=== PATIENT | male | born 1985 | race Caucasian/White ===

== ENCOUNTER 2021-06-07 08:35 | Emergency (ER) | payer SELFPAY ==
--- NOTE | 2021-06-07 08:38 | XRR_ITS ---
PROCEDURE INFORMATION: Exam: XR Right Hand Exam date and time: 06/07/2021 8:38 AM Age: 36 years old Clinical indication: Injury or trauma; Other: Shot nail into right thumb; Puncture; Finger; Injury date: 06/07/21 TECHNIQUE: Imaging protocol: XR Right hand. Views: 3 or more views. COMPARISON: No relevant prior studies available. FINDINGS: Bones/joints: See Soft tissues finding. Soft tissues: A large metallic nail is seen traversing the soft tissues of the right thumb. No fracture or dislocation identified. XR/XR hand RT min 3V* [id number] IMPRESSION: Metallic nail traversing the soft tissues of the right thumb. No clear evidence of osseous injury.
[2021-06-07] MEDS: lidocaine 2% INJ 20 mL INJECTION (09:05)
[2021-06-07 09:13] VITALS: BP 152/94; PULSE 80; RESP 16; TEMP 36.7; O2SAT 99; BMI 27.8
--- NOTE | 2021-06-07 09:14 | ED_ITS ---
HPI - Skin/Abscess/Foreign Bdy General: Chief complaint: Extremity Injury, Upper Stated complaint: shot nail into right thumb Time Seen by Provider: 06/07/21 08:44 History of Present Illness: HPI narrative: Patient is a 36-year-old male comes to the ED with a nail in right thumb. Patient was out working on a house and excellently shot of nail into the distal end of his right thumb. Patient denies any active bleeding and the pain is mild. Patient says he needs an updated tetanus. Associated symptoms: Deny chills, fever(s), nausea or vomiting Review of Systems Const: Denies: fever(s), chills or fatigue Eyes: Denies: change in vision or eye discomfort ENMT: Denies: throat pain, odynophagia, nasal discharge or nasal congestion Card: Denies: chest pain, palpitations, edema, swelling of feet/ankles, dyspnea on exertion or orthopnea Resp: Denies: dyspnea, productive cough or non-productive cough GI: Denies: abdominal pain, nausea, vomiting, diarrhea, constipation or hematochezia : Denies: flank pain, difficulty urinating, dysuria or hematuria Musc: Reports: extremity pain (right hand) and other (nail through distal end of right thumb); Denies: neck pain, back pain or extremity swelling Skin/Breast: Denies: rash or new lesions Neuro: Denies: headache(s), numbness in extremities or weakness in extremities PFS ED PFSH: Social History Smoking and tobacco status: current every day smoker Physical Exam Const: COMMON NORMALS: no acute distress, patient oriented x3 and alert GENERAL APPEARANCE: cooperative and comfortable HENMT: COMMON NORMALS: normocephalic HEAD & SCALP: normocephalic MOUTH: Normal oral and palatal mucosa present THROAT: posterior oropharynx normal and uvula midline Neck/C-Spine: COMMON NORMALS: supple GENERAL: Yes normal visual inspection Resp: COMMON NORMALS: normal respiratory effort, No retractions, No use of accessory muscles and clear to auscultation bilaterally AUSCULTATION: clear to auscultation bilaterally Cardio: COMMON NORMALS: regular rate, regular rhythm, S1 normal heart sound present, S2 normal heart sound present, No gallops present (Cardio), No clicks present (Cardio), No murmurs present (Cardio) and Peripheral pulses 2+ throughout RATE: regular rate RHYTHM: regular rhythm HEART SOUNDS: S1 normal heart sound present and S2 normal heart sound present PERIPHERAL PULSES: Peripheral pulses 2+ throughout GI: COMMON NORMALS: Normal to inspection, nondistended, normoactive bowel sounds present, Soft to palpation, non-tender and no masses PALPATION: Yes Soft to palpation : COMMON NORMALS: Yes no CVA tenderness BLADDER/KIDNEY EXAM: Yes no CVA tenderness Back/Pelvis: COMMON NORMALS: no CVA tenderness Extremity: COMMON NORMALS: full ROM NARRATIVE EXTREMITY EXAM: Patient has a visible male going through the distal aspect of patient's right thumb. It appears to go through the pad of patient's thumb and there is no active bleeding seen. Cap refill normal and patient has full range of motion in thumb. GENERA L: Yes normal exam except as noted Neuro: COMMON NORMALS: patient oriented x3 and moves all extremities SENSORIUM/ORIENTATION: Yes alert Skin: NARRATIVE SKIN EXAM: Patient has a visible male going through the distal aspect of patient's right thumb. GENERAL SKIN EXAM: dry skin Procedures Foreign Body Removal Time Out Performed: yes Site: right and hand (thumb) Description of foreign body: other (Nail) Sedation/Analgesia: other (digital block with lidocaine 2%) Technique: removal with forceps Confirmed by:: direct visualization (Intact nail removed) and radiograph Complications: none Post-procedure exam: awake, alert Neurovascular: no change from pre-procedure Nerve Block Nerve Block 1: Time out performed: Yes Local Anesthetic: lidocaine 2% Amount of anesthesia used (mL): 10 Side: right Nerve Blocks: digital (1st digit) Procedure Successful: Yes Patient Tolerated Procedure: well Complications: none Course Vital Signs: Vital signs: Vital Signs Temperature 98.9 F 06/07/21 10:26 Pulse Rate 85 06/07/21 10:26 Respiratory Rate 19 H 06/07/21 10:26 Blood Pressure 113/89 06/07/21 10:26 Pulse Oximetry 97 06/07/21 10:26 MDM - Skin/Abscess/Foreign Bdy MDM Narrative: Medical decision making narrative: Patient is a 36-year-old male comes to the ED with a nail and distal aspect of right thumb. Patient has full range of motion of the thumb and cap refill is normal. X-ray of right hand shows metallic nail transversing soft tissue no evidence of bony injury. Nerve block on first digit was performed with lidocaine 2%. Nail was then manually removed with some pliers. Nail was intact after removal. Post foreign body removal x-ray performed and no remaining foreign body seen and no acute fractures noted. Patient tolerated procedure well and then thumb was irrigated extensively with normal saline and then soaked in a saline iodine wash. Nurse then applied triple antibiotic ointment on thumb and bandaged it. Patient was discharged home with a prescription for Keflex. He was given an updated tetanus today here in the ED. He was told to follow-up with PCP in 7 to 10 days reevaluation. Return to ED precautions given. Patient understood and agreed with plan. Imaging Data^: Xray Ortho: Attestation: I personally reviewed and interpreted this imaging study as follows: My impression: Post nail removal right hand x-ray performed. No visible foreign body seen and no bony fractures noted. Radiologist's impression: [address] [address] XRay Report Signed Patient: Yonathan Lee Unit #: [id number] : 1985 Age/Sex: 36 / M ADM Date: 06/07/21 Loc: ER Room/Bed: Attending Dr: Ordering Provider/Ordering MD: Damon Carpenter Date of Service: 06/07/21 Procedure(s): XR hand RT min 3V* [id number] Accession Number(s): [id number] Report Number: [id number] PROCEDURE INFORMATION: Exam: XR Right Hand Exam date and time: 06/07/2021 8:38 AM Age: 36 years old Clinical indication: Injury or trauma; Other: Shot nail into right thumb; Puncture; Finger; Injury date: 06/07/21 TECHNIQUE: Imaging protocol: XR Right hand. Views: 3 or more views. COMPARISON: No relevant prior studies available. FINDINGS: Bones/joints: See Soft tissues finding. Soft tissues: A large metallic nail is seen traversing the soft tissues of the right thumb. No fracture or dislocation identified. XR/XR hand RT min 3V* [id number] IMPRESSION: Metallic nail traversing the soft tissues of the right thumb. No clear evidence of osseous injury. Dictated By: David Hubbard Signed By: David Hubbard Signed Date/Time: 06/07/21 1016 DD/ 1013 Discharge Plan Discharge Patient Disposition: Home Clinical Impression: Foreign body finger Condition: Stable Prescriptions: New cephalexin 500 mg capsule 500 mg PO Q6H 7 Days Qty: 28 RF: 0 No Action cyclobenzaprine 10 mg tablet 10 mg PO BID PRN (Reason: muscle spasm) Qty: 14 RF: 0 Discharge Orders: Discharge ED (Routine); Ordered 06/07/21 Ordered By: Damon Carpenter Referrals: Damon Clinton MD [Primary Care Provider] - Discharge Diet: Regular Discharge Activity: Increase activity as tolerated Patient Instructions: Soft Tissue Foreign Body (ED) Activity Restrictions/Additional Instructions: Follow-up with medical provider as directed in 7 to 10 days for reevaluation. Make sure to keep covered when out and about throughout the day. You can apply triple antibiotic ointment on thumb as well to help prevent infection. Clean daily with soap and water. Take full course of antibiotic as prescribed. Return to the ER or your medical provider if condition worsens. Please read and understand discharge instructions. Thank you for choosing [facility] for your healthcare needs today. Please realize this is an emergency room and that we are providing you with a medical screening exam and this may not be complete and all inclusive of all the testing and or work up that you may need to determine your ailment or severity of your illness. It is very important that you follow up as instructed or that you return to the Emergency Department should you have concerns or if your con dition changes or worsens in any way. Coding Level of Care Code ED Voice Over Artist for Owen Fwarnoldo Exam Comprehensive
[2021-06-07 09:16] VITALS: BP 113/89; PULSE 89; RESP 18; O2SAT 100
[2021-06-07] MEDS: tetanus-dipt-pertussis 0.5 mL SDV IM (09:20)
--- NOTE | 2021-06-07 10:03 | XRR_ITS ---
PROCEDURE INFORMATION: Exam: XR Right Hand Exam date and time: 06/07/2021 10:03 AM Age: 36 years old Clinical indication: Screening exam; Post nail removal TECHNIQUE: Imaging protocol: XR Right hand. Views: 3 or more views. COMPARISON: CR XR hand RT min 3V* [id number] 06/07/2021 8:50 AM FINDINGS: Bones/joints: See Soft tissues finding. Soft tissues: Previously seen metallic nail traversing the soft tissues of the thumb has been removed. No radiopaque foreign body identified. No fracture or dislocation seen. XR/XR hand RT min 3V* [id number] IMPRESSION: Interval successful removal of thumb foreign body.
[2021-06-07] MEDS: HYDROcodone-acetaminophen 7.5-325 mg Tablet 1 TAB PO (10:23)
[2021-06-07] MEDS: neomycin-poly-bacitracin oint 0.9 gm Pkt 1 APPLIC TOPICAL (10:23)
[2021-06-07 10:26] VITALS: BP 113/89; PULSE 85; RESP 19; TEMP 37.2; O2SAT 97
== END 2021-06-07 10:38 | disposition home or self-care (01) ==
PROVIDERS: Emergency Provider Physician Assistant; PCP Family Medicine
DX: S61.041A Puncture wound with foreign body of right thumb without damage to nail, initial encounter (principal); W45.0XXA Nail entering through skin, initial encounter; F17.210 Nicotine dependence, cigarettes, uncomplicated; Z23 Encounter for immunization
CPT/HCPCS: 73130; 90471; 90715; 99283

== ENCOUNTER 2021-07-13 22:19 | Emergency (ER) | payer OTHER, SELFPAY ==
[2021-07-13 22:20] VITALS: BP 162/88; PULSE 85; RESP 22; TEMP 36.7; O2SAT 97; BMI 30.7
[2021-07-13 22:37] VITALS: BP 162/88; PULSE 83; RESP 23; TEMP 36.7; O2SAT 97
--- NOTE | 2021-07-13 22:39 | CTR_ITS ---
PROCEDURE INFORMATION: Exam: CT Abdomen And Pelvis Without Contrast Exam date and time: 07/13/2021 10:39 PM Age: 36 years old Clinical indication: Abdominal pain; Patient HX: Left flank pain. ; Additional info: L side pain TECHNIQUE: Imaging protocol: Computed tomography of the abdomen and pelvis without contrast. Radiation optimization: All CT scans at this facility use at least one of these dose optimization techniques: automated exposure control; mA and/or kV adjustment per patient size (includes targeted exams where dose is matched to clinical indication); or iterative reconstruction. COMPARISON: CR Chest 1 [place] [id number] 12/04/2018 9:20 AM RADIATION DOSE METRICS: Total DLP (mGy-cm): 1567.56 FINDINGS: Liver: Normal. No mass. Gallbladder and bile ducts: Normal. No calcified stones. No ductal dilation. Pancreas: Normal. No ductal dilation. Spleen: Normal. No splenomegaly. Adrenal glands: Normal. No mass. Kidneys and ureters: 5 mm stone in the left mid ureter. Proximal hydroureteronephrosis. Nonobstructing upper pole left side stone 4 mm length. Stomach and bowel: Unremarkable. No obstruction. No mucosal thickening. Appendix: No evidence of appendicitis. Intraperitoneal space: Unremarkable. No free air. No significant fluid collection. Vasculature: Unremarkable. No abdominal aortic aneurysm. Lymph nodes: Unremarkable. No enlarged lymph nodes. Urinary bladder: Unremarkable as visualized. Reproductive: Unremarkable as visualized. Bones/joints: Unremarkable. No acute fracture. Soft tissues: Unremarkable. CT/CT kidney stone [id number] IMPRESSION: Left-sided ureterolithiasis with obstructive uropathy changes. Radiation Dose CTDIVOL = (mGy): DLP = 1567.56 (mGy-cm)
--- NOTE | 2021-07-13 22:42 | W.ED.ABDPA2 ---
HPI - Abdominal Pain General: Chief Complaint: Abdominal Pain Stated Complaint: abdominal pain Time Seen by Provider: 07/13/21 22:22 Source: patient and EMS Mode of arrival: EMS Limitations: no limitations History of Present Illness: HPI narrative: 36-year-old male states that at 9:00 tonight he had sudden onset of left-sided abdominal pain and left flank pain. States the pain is sharp in nature and rates it a 9 out of 10 causing him to vomit. He states the pain is actually improved when he presses on his abdomen. Denies any worsening factors. Associated Symptoms: Reports nausea and vomiting; Denies chills and fever(s) Review of Systems Const: Denies: fever(s), chills, body aches or change in appetite Eyes: Denies: blurry vision or eye discomfort ENMT: Denies: throat pain or dental pain Card: Denies: chest pain Resp: Denies: dyspnea GI: Reports: abdominal pain, nausea and vomiting : Reports: flank pain Musc: Denies: neck pain or back pain Skin/Breast: Denies: rash Neuro: Denies: headache(s) Psych: Denies: depression Colin/Lymph: Denies: easy bruising All/Imm: Denies: urticaria PFSH ED PFSH: Social History Smoking and tobacco status: current every day smoker Physical Exam Const: COMMON NORMALS: no acute distress, patient oriented x3 and healthy appearing HENMT: COMMON NORMALS: normocephalic and atraumatic HEAD & SCALP: normocephalic and atraumatic Eye: COMMON NORMALS: Equal, round and reactive pupils present and EOMs intact bilaterally PUPIL: Yes Equal, round and reactive pupils present Neck/C-Spine: COMMON NORMALS: full ROM and supple Chest: COMMONS NORMALS: normal inspection of the chest and normal palpation of entire chest wall Resp: COMMON NORMALS: normal respiratory effort, No retractions, No use of accessory muscles and clear to auscultation bilaterally AUSCULTATION: clear to auscultation bilaterally Cardio: COMMON NORMALS: regular rate, regular rhythm and No murmurs present (Cardio) RATE: regular rate RHYTHM: regular rhythm GI: COMMON NORMALS: Normal to inspection, nondistended, normoactive bowel sounds present, Soft to palpation, non-tender and no masses PALPATION: Yes Soft to palpation Extremity: COMMON NORMALS: normal to inspection and full ROM Neuro: COMMON NORMALS: patient oriented x3, moves all extremities and no focal motor deficits Psych: COMMON NORMALS: mental status grossly normal, Normal thought process present and cooperative THOUGHT PROCESS: Normal thought process present Skin: COMMON NORMALS: no rashes or lesions noted and no wounds GENERAL SKIN EXAM: no rashes or lesions noted Course Vital Signs: Vital signs: Vital Signs Temperature 98.1 F 07/13/21 22:37 Pulse Rate 92 07/14/21 00:51 Respiratory Rate 15 07/14/21 00:51 Blood Pressure 138/73 07/14/21 00:51 Pulse Oximetry 99 07/14/21 00:51 MDM - Abdominal Pain MDM Narrative: Medical decision making narrative: Patient presents here with kidney stone. Stones 5 mm likely should pass. His pain here is resolved and is stable for discharge. He is to follow-up with urologist and use a strainer. He is to return if worsening. He understands agrees to plan. Lab Data: Labs: Lab Results 07/13/21 07/13/21 07/13/21 Range/Units 22:30 22:30 23:55 WBC 13.0 H (4.0-10.0) 10^3/ uL RBC 4.31 (4.1-5.3) 10^6/u L Hgb 13.3 (11.7-16.6) g/dL Hct 40.9 L (42.0-52.0) % MCV 94.9 H (80-94) fl MCH 30.9 (28.0-34.0) pg MCHC 32.5 (30.0-36.0) g/dL RDW 13.0 (12.1-15.1) % Plt Count 272 (130-400) 10^3/c mm MPV 9.3 (7.4-10.4) fL Neut % (Auto) 67.8 % Lymph % (Auto) 20.8 % [place] % (Auto) 8.3 % Eos % (Auto) 2.5 % Baso % (Auto) 0.3 % Neut # (Auto) 8.81 H (1.8-7.7) 10^3/u L Lymph # (Auto) 2.7 (0.8-4.8) 10^3/u L [place] # (Auto) 1.1 H (0.2-0.9) 10^3/u L Eos # (Auto) 0.3 (0.0-0.8) 10^3/u L Baso # (Auto) 0.0 (0.0-0.1) 10^3/u L Nucleated RBC % (a uto) 0 % Nucleated RBCs # 0.0 /100WBC Sodium 137 (136-145) mmol/L Potassium 4.2 (3.5-5.1) mmol/L Chloride 102 (98-107) mmol/L Carbon Dioxide 22 (22-29) mmol/L Anion Gap 17.2 (5-19) BUN 20 (6-20) mg/dL Creatinine 1.1 (0.7-1.2) mg/dL GFR Calculation 75.3 L (90-130) mL/min Glucose 91 (65-115) mg/dL Calculated Osmolal ity 286 (285-295) mOsm/k g Calcium 8.9 (8.5-10.5) mg/dL Total Bilirubin 0.3 (0.15-1.2) mg/dL AST 21 (0-40) U/L ALT 6 (0-41) U/L Alkaline Phosphata se 54 (40-130) IU/L Total Protein 7.3 (6.6-8.7) g/dL Albumin 4.3 (3.5-5.2) g/dL Globulin 3.0 (1.3-4.6) g/dL Lipase 43 (13-60) U/L Urine Color Yellow (Yellow) Urine Appearance Clear (CLEAR) Urine pH 5 (5-7) Ur Specific Gravit y 1.025 (1.005-1.030) Urine Protein Neg (Negative) Urine Glucose (UA) Norm (Normal) Urine Ketones Negative (Negative) Urine Blood 3+ H (Negative) Urine Nitrate Negative (Negative) Urine Bilirubin Neg (Negative) Urine Urobilinogen Norm (Negative) mg/dL Ur Leukocyte [place] ase Negative (Negative) Urine RBC 0-4 H (0-2) /hpf Urine WBC 25-40 H (0-5) /hpf Ur Squamous Epith Cells 0-4 H (0-5) /hpf Amorphous Sediment Not Reportable Urine Bacteria Trace (NONE) /hpf Urine Mucus 1+ /hpf Imaging Data ^: CT Abd/Pel: Attestation: I personally reviewed and interpreted this imaging study as follows: Radiologist's impression: [employer] [place] [address] CT Scan Report Signed Patient: Yonathan Lee Unit #: [id number] : 1985 Age/Sex: 36 / M ADM Date: 07/13/21 Loc: ER Room/Bed: Attending Dr: Ordering Provider/Ordering MD: Bee Luis MD Date of Service: 07/13/21 Procedure(s): CT kidney stone 52124 Accession Number(s): [id number] Report Number: [id number] PROCEDURE INFORMATION: Exam: CT Abdomen And Pelvis Without Contrast Exam date and time: 07/13/2021 10:39 PM Age: 36 years old Clinical indication: Abdominal pain; Patient HX: Left flank pain. ; Additional info: L side pain TECHNIQUE: Imaging protocol: Computed tomography of the abdomen and pelvis without contrast. Radiation optimization: All CT scans at this facility use at least one of these dose optimization techniques: automated exposure control; mA and/or kV adjustment per patient size (includes targeted exams where dose is matched to clinical indication); or iterative reconstruction. COMPARISON: CR Chest 1 [place] [id number] 12/04/2018 9:20 AM RADIATION DOSE METRICS: Total DLP (mGy-cm): 1567.56 FINDINGS: Liver: Normal. No mass. Gallbladder and bile ducts: Normal. No calcified stones. No ductal dilation. Pancreas: Normal. No ductal dilation. Spleen: Normal. No splenomegaly. Adrenal glands: Normal. No mass. Kidneys and ureters: 5 mm stone in the left mid ureter. Proximal hydroureteronephrosis. Nonobstructing upper pole left side stone 4 mm length. Stomach and bowel: Unremarkable. No obstruction. No mucosal thickening. Appendix: No evidence of appendicitis. Intraperitoneal space: Unremarkable. No free air. No significant fluid collection. Vasculature: Unremarkable. No abdominal aortic aneurysm. Lymph nodes: Unremarkable. No enlarged lymph nodes. Urinary bladder: Unremarkable as visualized. Reproductive: Unremarkable as visualized. Bones/joints: Unremarkable. No acute fracture. Soft tissues: Unremarkable. CT/CT kidney stone [id number] IMPRESSION: Left-sided ureterolithiasis with obstructive uropathy changes. Radiation Dose CTDIVOL = (mGy): DLP = 1567.56 (mGy-cm) Dictated By: Anurag Rodas Signed By: Anurag Rodas Signed Date/Time: 07/13/212340 DD/ 39 Discharge Plan Discharge Patient Disposition: Home Clinical Impression: Kidney stone on left side Condition: Stable Prescriptions: New hydrocodone-acetaminophen 5-325 mg tablet 1 tab PO Q6H PRN (Reason: pain) Qty: 14 RF: 0 ondansetron 4 mg tablet,disintegrating 4 mg PO Q6H PRN (Reason: nausea and vomiting) Qty: 14 RF: 0 Flomax 0.4 mg capsule 0.4 mg PO DAILY Qty: 5 RF: 0 No Action metronidazole 500 mg tablet 500 mg PO BID 7 Days Qty: 14 RF: 0 Discharge Orders: Discharge ED (Routine); Ordered 07/14/21 Ordered By: Bee Luis Referrals: Kevin Franklin MD [Physician] - 1-3 days Discharge Diet: Advance as tolerated Discharge Activity: Resume usual activity Patient Instructions: Kidney Stones (ED), Opioid Safety Coding Level of Care Code ED Construction Administrative Assistant for Chg Fwd Exam Comprehensive
[2021-07-13 22:43] LABS: Basophils % 0.3 %; Eosinophils # 0.3 10^3/uL (0.0-0.8); Eosinophils % 2.5 %; Hematocrit 40.9 % (42.0-52.0); Hemoglobin 13.3 g/dL (11.7-16.6); Lymphocytes # 2.7 10^3/uL (0.8-4.8); Lymphocytes % 20.8 %; Mean Corpuscular HGB Conc 32.5 g/dL (30.0-36.0); Mean Corpuscular Hemoglobin 30.9 pg (28.0-34.0); Mean Corpuscular Volume 94.9 fl (80-94); Mean Platelet Volume 9.3 fL (7.4-10.4); Monocytes # 1.1 10^3/uL (0.2-0.9); Monocytes % 8.3 %; Neutrophils # 8.81 10^3/uL (1.8-7.7); Neutrophils % 67.8 %; Nucleated Red Blood Cells % 0 %; Platelet Count 272 10^3/cmm (130-400); Red Blood Count 4.31 10^6/uL (4.1-5.3)
[2021-07-13] MEDS: sodium chloride 0.9% 1,000 ML 999 ML IV ×2 (22:45→23:59)
[2021-07-13 22:52] VITALS: RESP 22; O2SAT 98
[2021-07-13] MEDS: HYDROmorphone 1 mg/mL INJ 1 mL IVP (22:52)
[2021-07-13] MEDS: ondansetron 2 mg/ML SDV 2 mL 4 MG IVP (22:52)
[2021-07-13 23:11] LABS: Alanine Aminotransferase 6 U/L (0-41); Albumin Level 4.3 g/dL (3.5-5.2); Alkaline Phosphatase 54 IU/L (40-130); Blood Urea Nitrogen 20 mg/dL (6-20); Calcium 8.9 mg/dL (8.5-10.5); Carbon Dioxide 22 mmol/L (22-29); Chloride 102 mmol/L (98-107); Glomerular Filtration Rate 75.3 mL/min (90-130); Glucose 91 mg/dL (65-115); Lipase 43 U/L (13-60); Osmolality Calculated 286 mOsm/kg (285-295); Sodium 137 mmol/L (136-145); Total Bilirubin 0.3 mg/dL (0.15-1.2); Total Protein 7.3 g/dL (6.6-8.7)
[2021-07-13 23:15] VITALS: BP 125/69; PULSE 86; RESP 18; O2SAT 94
[2021-07-13 23:23] LABS: Anion Gap 17.2 (5-19); Aspartate Amino Transferase 21 U/L (0-40); Potassium 4.2 mmol/L (3.5-5.1)
[2021-07-14] MEDS: ketorolac 30 mg/mL INJ 15 MG IVP (00:12)
[2021-07-14 00:13] VITALS: BP 129/71; PULSE 78; RESP 20; O2SAT 100
[2021-07-14 00:40] LABS: Specific Gravity, Urine 1.025 (1.005-1.030); Urine Appearance Clear (CLEAR); Urine Color Yellow (Yellow); pH Urine 5 (5-7)
[2021-07-14 00:41] LABS: Add Urine Microscopic? YES; Bilirubin Urine Neg (Negative); Blood Urine 3+ (Negative); Glucose Urine UA Norm (Normal); Ketones Urine Negative (Negative); Leukocyte Esterase Urine Negative (Negative); Nitrate Urine Negative (Negative); Protein Urine Neg (Negative); Urobilinogen Urine Norm (Negative)
[2021-07-14 00:42] LABS: Add Urine Culture? Yes; Bacteria Urine TRACE /hpf; Mucus Urine 1+ /hpf; RBC Urine 0-4 /hpf (0-2); Squamous Epithelial Cell Urine 0-4 /hpf (0-5); WBC Urine 25-40 /hpf (0-5)
[2021-07-14 00:51] VITALS: BP 138/73; PULSE 92; RESP 15; O2SAT 99
[2021-07-14 00:59] VITALS: BP 138/73; PULSE 84; RESP 16; O2SAT 100
--- NOTE | 2021-07-16 10:18 | DCPLANNER ---
geological manager had message to schedule a follow up appointment for patient with Dr. Franklin. geological manager called the office of Dr. Franklin, spoke with Kvng, gave clinic patients information. geological manager was told that patients information would be printed and reviewed. Clinic will call patient with appointment information.
--- NOTE | 2021-07-18 09:49 | DCPLANNER ---
Patient had a follow up appointment scheduled for 07.17.[address] Franklin - patient did attend appointment.
== END 2021-07-14 00:58 | disposition home or self-care (01) ==
PROVIDERS: Emergency Provider Emergency Medicine
DX: N20.0 Calculus of kidney (principal); F17.210 Nicotine dependence, cigarettes, uncomplicated
CPT/HCPCS: 74176; 80053; 81001; 83690; 85025; 87086; 96361; 96374; 96375; 99284; J1170; J1885; J2405; J7030

== ENCOUNTER 2021-07-17 12:03 | Outpatient (CLI) | payer OTHER, SELFPAY ==
--- NOTE | 2021-07-17 13:29 | XR_ITS ---
WS: [id number] XR KUB [id number] REASON FOR EXAM: KIDNEY STONE FINDINGS: The calculus in the left kidney demonstrated on the CT scan of 07/13/2021 is not readily identified on the current examination. No other urinary tract calculi are identified. The bowel gas pattern is unremarkable. There is no free air or retroperitoneal air. Lumbar spine and bony pelvis are intact. XR/XR KUB [id number] IMPRESSION: No urinary tract calculi identified as above.
== END 2021-07-17 12:04 | disposition home or self-care (01) ==
LOC: RAD 12:07
PROVIDERS: Visit Provider Urology
DX: N20.0 Calculus of kidney (principal)
CPT/HCPCS: 74018

== ENCOUNTER 2021-07-25 07:23 | Outpatient (CLI) | payer OTHER, SELFPAY ==
--- NOTE | 2021-07-25 07:28 | XR_ITS ---
WS: [id number] KUB, AP view, 07/25/2021 Clinical Data: URETERAL CALCULUS AND RENAL COLIC ON LEFT SIDE Comparison: KUB, 07/17/2021. Findings: No abnormal intraabdominal masses or calcifications are seen. There is no dilatated small bowel or ev idence of obstruction. There is moderate fecal material in the ascending colon. XR/XR KUB [id number] Impression: Negative KUB.
== END 2021-07-25 07:24 | disposition home or self-care (01) ==
LOC: RAD 07:25
PROVIDERS: Visit Provider Urology
DX: N20.1 Calculus of ureter (principal); N23 Unspecified renal colic
CPT/HCPCS: 74018; 82365; 88300

== ENCOUNTER 2021-09-17 08:26 | Outpatient (CLI) | payer OTHER, SELFPAY ==
--- NOTE | 2021-09-17 08:15 | XR_ITS ---
WS: [id number] Exam: XR KUB [id number] Date/Time of Exam: 09/17/2021 8:15 AM Reason For Exam: renal stone No sign of bowel obstruction or free air. Visualized organ margins are intact. No calcifications are noted in the region of the kidneys. Regional bony elements appear normal. 2 mm nonspecific left pelvi c calcification noted. XR/XR KUB [id number] IMPRESSION: 1. No acute abdominal process. 2. No calcifications noted in the region of the kidneys.
== END 2021-09-17 08:27 | disposition home or self-care (01) ==
LOC: RAD 08:28
PROVIDERS: Visit Provider Urology
DX: N20.0 Calculus of kidney (principal)
CPT/HCPCS: 74018; 81003

== ENCOUNTER → 2021-10-03 14:50 | Outpatient (BNVA) | payer OTHER, SELFPAY | PROVIDERS: Visit Provider Surgery | DX: Z20.822 Contact with and (suspected) exposure to COVID-19 (principal) | CPT/HCPCS: 87635 ==

== ENCOUNTER 2021-10-05 07:43 | Day surgery (SDC) | payer OTHER, SELFPAY ==
[2021-10-04 10:28] VITALS: BMI 31.5
--- NOTE | 2021-10-05 08:12 | W.PM.OPSFHP ---
Same Day Surgery H&P Indication for Procedure/HPI DATE OF PROCEDURE: October 05, 2021 CHIEF COMPLAINT/INDICATIONFOR SURGICAL PROCEDURE: colonoscopy PREOP DIAGNOSIS: diagnostic PLANNED PROCEDRUE: Operation Date: 10/05/21 09:15 Proposed Procedures p Colonoscopy 33428 K92.1(Not Applicable) - Kurt Chaparro MD Medications/Allergies* Allergies/Adverse Reactions Allergy/AdvReac Type Severity Reaction Status Date / Time Sulfa (Sulfonamide Allergy ALGY-Hives Verified 10/04/21 10:27 Antibiotics) Pertinent History/Comorbid Conditions* Medical History (Updated 09/17/21 @ 10:07 by Lulu Coley APRN) Left renal stone Left ureteral calculus Surgical History (Updated 09/25/21 @ 11:43 by Kurt Chaparro MD) History of open reduction and internal fixation (ORIF) procedure RLE Family History (Updated 07/17/21 @ 14:57 by JULIETA Roberts) Diabetes CAD (coronary artery disease) Cancer Social History Alcohol intake: never Marital status: Current occupational status: employed Pertinent Exam Findings alert, oriented x 3 and regular rate & rhythm Recommendations Surgery/Procedure today Coding Level of Care Code Acute Open Hearth Worker for Chg Samson
--- NOTE | 2021-10-05 08:20 | ANES.PREANE2 ---
Pre-Anesthetic Assessment Pre-Anesthetic Assessment: Height/Weight: Height 1.78 m Weight 99.79 kg Preop Diagnosis: diagnostic Proposed Procedure: Operation Date: 10/05/21 09:15 Proposed Procedures p Colonoscopy 00034 K92.1(Not Applicable) - Kurt Chaparro MD Was Beta Lee taken within 24 hours: N/A Was Clonidine taken within 24 hours: N/A Social: Social History: Tobacco and No alcohol Exam: Pre-Anes Outpt Exam: alert, oriented x 3 and regular rate & rhythm Airway: Submandibular: WNL Cervical ROM: WNL MP: 2 Dentition: Chipped Additional comments: Ren, tongue ring Pulmonary: Pulmonary: COPD Metabolic: Metabolic: Morbid obesity Anesthetic Plan: ASA status: 2 Anesthesia: MAC Risk of > 500 ml blood loss (7ml/kg in children): No PFSH Anesthesia PFSH: Medical History Left renal stone Left ureteral calculus Surgical History History of open reduction and internal fixation (ORIF) procedure RLE Family History Other CAD (coronary artery disease) Cancer Diabetes Social History Alcohol intake: never Marital status: Current occupational status: employed Data Anesthesia Cardiac Studies: No Data to Display
[2021-10-05] MEDS: sodium chloride 0.9% 1,000 ML 30 ML IV (09:09)
[2021-10-05 10:08] VITALS: BP 113/65; PULSE 78; RESP 16; TEMP 36.4; O2SAT 97
[2021-10-05 10:25] VITALS: BP 115/70; PULSE 80; RESP 18; O2SAT 96
--- NOTE | 2021-10-05 10:40 | ANE.PACU2 ---
Inpatient post-anesthesia follow up: Airway intact: Yes Vital signs: Temperature 97.6 F Pulse Rate 80 Respiratory Rate 18 Blood Pressure 115/70 Pulse Oximetry 96 Oxygen Delivery Me thod Room Air Oxygen Flow Rate Fraction of Inspir ed Oxygen Hydration adequate: Yes Mental status: Baseline
== END 2021-10-05 10:49 | disposition home or self-care (01) ==
PROVIDERS: Visit Provider Surgery
PROC: 0DJD8ZZ Inspection of Lower Intestinal Tract, Via Natural or Artificial Opening Endoscopic (ICD-10-PCS; CPT 45378; principal; 2021-10-05 09:15)
DX: K92.1 Melena (principal); K64.8 Other hemorrhoids; J44.9 Chronic obstructive pulmonary disease, unspecified; E66.01 Morbid (severe) obesity due to excess calories; Z68.31 Body mass index [BMI] 31.0-31.9, adult; F17.200 Nicotine dependence, unspecified, uncomplicated; Z82.49 Family history of ischemic heart disease and other diseases of the circulatory system; Z83.3 Family history of diabetes mellitus
CPT/HCPCS: 45378; 96360; J7030

== ENCOUNTER → 2022-06-25 10:32 | Outpatient (BNVA) | payer OTHER, SELFPAY | PROVIDERS: Visit Provider Registered Nurse Neonatal Intensive Care | DX: R50.9 Fever, unspecified (principal); J02.9 Acute pharyngitis, unspecified; J40 Bronchitis, not specified as acute or chronic | CPT/HCPCS: 87071; 87400; 87880 ==

== ENCOUNTER 2022-07-25 07:21 | Outpatient (CLI) | payer OTHER, SELFPAY ==
--- NOTE | 2022-07-25 07:34 | XR_ITS ---
WS: [id number] KUB, AP view, 07/25/2022 Clinical Data: Renal Stone Comparison: KUB, 09/17/2021 Findings: No abnormal intraabdominal masses or calcifications are seen. There is no dilatated small bowel or ev idence of obstruction. There is air and minimal fecal material in the colon. XR/XR KUB [id number] Impression: Negative KUB.
== END 2022-07-25 07:22 | disposition home or self-care (01) ==
LOC: RAD 07:23
PROVIDERS: Visit Provider Urology
DX: N20.0 Calculus of kidney (principal)
CPT/HCPCS: 74018

== ENCOUNTER 2022-10-31 10:07 | Emergency (ER) | payer OTHER, SELFPAY ==
[2022-10-31 10:12] VITALS: BP 130/78; PULSE 105; RESP 19; TEMP 39.5; O2SAT 97; BMI 28.7
--- NOTE | 2022-10-31 10:27 | W.ED.COVID ---
HPI - COVID General: Chief Complaint: COVID symptoms Stated Complaint: high fever, body aches Time Seen by Provider: 10/31/22 10:17 History of Present Illness: Patient is in today for fever. He reports that he felt okay until about midnight and he woke up with 105 fever at home. He reports that he is always hot and he has bundled up in several layers now he is freezing. He reports that he has still been able to drink liquids and he did urinate today. He has had a decreased appetite. He reports that he has had a little bit of a dry cough. He offers that he has been around his boss whose had influenza A but he did not think his boss had been sick. COVID 19 common symptoms: positive fever(s), chills, non-productive cough, fatigue, body aches, headache(s) and nasal congestion; negative dyspnea, nausea or vomiting COVID 19 other sytmptoms: negative chest pain COVID Results: SARS-CoV-2 RNA (RT-PCR) Not detected (NOT DETECTED) 10/03/21 14:50 SARS-CoV-2 (PCR) Detected (NOT DETECT) A 10/31/22 11:25 Coronavirus Type 229E (PCR) Not detected (NOT DETECT) 10/31/22 11:25 Review of Systems Const: Reports: fever(s), chills, body aches and fatigue ENMT: Reports: nasal congestion and post nasal drip Card: Denies: chest pain or palpitations Resp: Reports: non-productive cough; Denies: dyspnea GI: Denies: abdominal pain, nausea or vomiting : Denies: flank pain, dysuria or urinary frequency Neuro: Reports: headache(s); Denies: numbness in extremities, weakness in extremities, sensory changes or lack of coordination PFSH ED PFSH: Medical History Hemorrhoids Left renal stone Left ureteral calculus Surgical History History of open reduction and internal fixation (ORIF) procedure RLE Status post colonoscopy Family History Father No problems noted. Mother No problems noted. Other CAD (coronary artery disease) Cancer Diabetes Social History Smoking and tobacco status: current every day smoker Alcohol intake: never Marital status: Current occupational status: employed History of recent travel: No Physical Exam Const: COMMON NORMALS: patient oriented x3 and alert OTHER: Patient is ill-appearing. He is bundled up in 4 layers of shirts and a garcia shivering. I had him remove the hooded sweatshirt. HENMT: COMMON NORMALS: TM's normal bilaterally NOSE: Nasal discharge present clear TYMPANIC MEMBRANE: TM's normal bilaterally THROAT: uvula midline and postnasal drainage Neck/C-Spine: COMMON NORMALS: no JVD Resp: COMMON NORMALS: normal respiratory effort, No use of accessory muscles and clear to auscultation bilaterally AUSCULTATION: clear to auscultation bilaterally Cardio: COMMON NORMALS: no JVD, regular rate, regular rhythm, S1 normal heart sound present, S2 normal heart sound present and No murmurs present (Cardio) RATE: regular rate RHYTHM: regular rhythm HEART SOUNDS: S1 normal heart sound present and S2 normal heart sound present Neuro: COMMON NORMALS: patient oriented x3, CN's II-XII intact bilaterally and moves all extremities SENSORIUM/ORIENTATION: Yes alert Course Vital Signs: Vital signs: Vital Signs Temperature 99.6 F 10/31/22 13:11 Pulse Rate 98 10/31/22 13:11 Respiratory Rate 19 H 10/31/22 13:11 Blood Pressure 122/70 10/31/22 13:11 Pulse Oximetry 97 10/31/22 13:11 Oxygen Delivery Me thod 10/31/22 13:10 MDM - COVID Medical Decision Making Consider influenza, COVID-19, viral illness, dehydration, fever IV fluids were ordered however patient was a difficult stick and wishes to just try and drink p.o. fluids. Patient is drinking oral liquids. Tylenol was given to bring down fever. Influenza negative. Lab Data 10/31/22 11:10 10/31/22 11:10 Laboratory Results WBC 7.2 10^3/uL (4.0-10.0) 10/31/22 11:10 RBC 4.42 10^6/uL (4.1-5.3) 10/31/22 11:10 Hgb 13.7 g/dL (11.7-16.6) 10/31/22 11:10 Hct 40.1 % (42.0-52.0) L 10/31/22 11:10 MCV 90.7 fl (80-94) 10/31/22 11:10 MCH 31.0 pg (28.0-34.0) 10/31/22 11:10 MCHC 34.2 g/dL (30.0-36.0) 10/31/22 11:10 RDW 13.3 % (12.1-15.1) 10/31/22 11:10 Plt Count 222 10^3/cmm (130-400) 10/31/22 11:10 MPV 8.9 fL (7.4-10.4) 10/31/22 11:10 Neut % (Auto) 76.4 % 10/31/22 11:10 Lymph % (Auto) 7.2 % 10/31/22 11:10 [place] % (Auto) 15.1 % 10/31/22 11:10 Eos % (Auto) 0.7 % 10/31/22 11:10 Baso % (Auto) 0.3 % 10/31/22 11:10 Neut # (Auto) 5.54 10^3/uL (1.8-7.7) 10/31/22 11:10 Lymph # (Auto) 0.5 10^3/uL (0.8-4.8) L 10/31/22 11:10 [place] # (Auto) 1.1 10^3/uL (0.2-0.9) H 10/31/22 11:10 Eos # (Auto) 0.1 10^3/uL (0.0-0.8) 10/31/22 11:10 Baso # (Auto) 0.0 10^3/uL (0.0-0.1) 10/31/22 11:10 Nucleated RBC % (auto) 0 % 10/31/22 11:10 Nucleated RBCs # 0.0 /100WBC 10/31/22 11:10 Sodium 133 mmol/L (136-145) L 10/31/22 11:10 Potassium 4.1 mmol/L (3.5-5.1) 10/31/22 11:10 Chloride 99 mmol/L (98-107) 10/31/22 11:10 Carbon Dioxide 24 mmol/L (22-29) 10/31/22 11:10 Anion Gap 14.1 (5-19) 10/31/22 11:10 BUN 13 mg/dL (6-20) 10/31/22 11:10 Creatinine 1.0 mg/dL (0.7-1.2) 10/31/22 11:10 GFR Calculation 83.6 mL/min (90-130) L 10/31/22 11:10 Glucose 88 mg/dL (65-115) 10/31/22 11:10 Calculated Osmolality 276 mOsm/kg (285-295) L 10/31/22 11:10 Calcium 9.5 mg/dL (8.5-10.5) 10/31/22 11:10 Total Bilirubin 0.3 mg/dL (0.15-1.2) 10/31/22 11:10 AST 18 U/L (0-40) 10/31/22 11:10 ALT 6 U/L (0-41) 10/31/22 11:10 Alkaline Phosphatase 63 U/L (40-130) 10/31/22 11:10 Total Protein 7.2 g/dL (6.6-8.7) 10/31/22 11:10 Albumin 4.2 g/dL (3.5-5.2) 10/31/22 11:10 Globulin 3.0 g/dL (1.3-4.6) 10/31/22 11:10 Coronavirus 229E (PCR) Not detected (NOT DETECT) 10/31/22 11:25 Influenza Type A Ag negative (Negative) 10/31/22 11:25 Influenza Type B Ag negative (Negative) 10/31/22 11:25 SARS-CoV-2 (PCR) Detected (NOT DETECT) A 10/31/22 11:25 SARS-CoV-2 RNA (RT-PCR) Not detected (NOT DETECTED) 10/03/21 14:50 SARS-CoV-2 (PCR) Detected (NOT DETECT) A 10/31/22 11:25 Coronavirus Type 229E (PCR) Not detected (NOT DETECT) 10/31/22 11:25 Discharge Plan Discharge Patient Disposition: Home Clinical Impression: Acute febrile illness, Viral infection Condition: Stable Prescriptions: No Action Flomax 0.4 mg capsule 0.4 mg PO DAILY Qty: 30 0RF lactulose 10 gram/15 mL (15 mL) solution 15 ml PO BID 7 Days Qty: 210 0RF Rx Instructions: take for 7 days prior to colonoscopy ondansetron 4 mg tablet,disintegrating 4 mg PO Q6H PRN (Reason: nausea and vomiting) Qty: 14 0RF hydrocodone-acetaminophen 5-325 mg tablet 2 tab PO Q6H PRN (Reason: pain) 3 Days Qty: 24 0RF Discharge Orders: Discharge ED (Routine); Ordered 10/31/22 Ordered By: Mini Aragon Discharge Diet: Usual diet Discharge Activity: Resume usual activity Patient Instructions: Fever - Adult, Viral Syndrome (ED) Activity Restrictions/Additional Instructions: Make sure that you are staying well-hydrated. Take Tylenol and Motrin alternating to manage her fever. Do not bundled up when you have a fever as this will only make you more hot. Follow-up with your primary care provider as needed. Return to the ER for new or worsening symptoms including, but not limited to, uncontrolled fever despite Tylenol and Motrin, inability to keep down oral liquids. 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
[2022-10-31] MEDS: acetaminophen 500 mg Tablet 1000 MG PO (11:14)
[2022-10-31 11:15] LABS: Basophils % 0.3 %; Eosinophils # 0.1 10^3/uL (0.0-0.8); Eosinophils % 0.7 %; Hematocrit 40.1 % (42.0-52.0); Hemoglobin 13.7 g/dL (11.7-16.6); Lymphocytes # 0.5 10^3/uL (0.8-4.8); Lymphocytes % 7.2 %; Mean Corpuscular HGB Conc 34.2 g/dL (30.0-36.0); Mean Corpuscular Volume 90.7 fl (80-94); Mean Platelet Volume 8.9 fL (7.4-10.4); Monocytes # 1.1 10^3/uL (0.2-0.9); Monocytes % 15.1 %; Neutrophils # 5.54 10^3/uL (1.8-7.7); Neutrophils % 76.4 %; Nucleated Red Blood Cells % 0 %; Platelet Count 222 10^3/cmm (130-400); Red Blood Count 4.42 10^6/uL (4.1-5.3); Red Cell Distribution Width 13.3 % (12.1-15.1); White Blood Count 7.2 10^3/uL (4.0-10.0)
[2022-10-31 11:33] VITALS: O2SAT 96
[2022-10-31 11:34] LABS: Alanine Aminotransferase 6 U/L (0-41); Albumin Level 4.2 g/dL (3.5-5.2); Alkaline Phosphatase 63 U/L (40-130); Anion Gap 14.1 (5-19); Aspartate Amino Transferase 18 U/L (0-40); Blood Urea Nitrogen 13 mg/dL (6-20); Calcium 9.5 mg/dL (8.5-10.5); Carbon Dioxide 24 mmol/L (22-29); Chloride 99 mmol/L (98-107); Glomerular Filtration Rate 83.6 mL/min (90-130); Glucose 88 mg/dL (65-115); Osmolality Calculated 276 mOsm/kg (285-295); Potassium 4.1 mmol/L (3.5-5.1); Sodium 133 mmol/L (136-145); Total Bilirubin 0.3 mg/dL (0.15-1.2); Total Protein 7.2 g/dL (6.6-8.7)
[2022-10-31 11:50] LABS: Influenza A by IFA negative (Negative); Influenza B by IFA negative (Negative)
[2022-10-31 13:10] VITALS: BP 122/70; PULSE 98; RESP 19; TEMP 37.6; O2SAT 97
[2022-10-31 13:11] VITALS: BP 122/70; PULSE 98; RESP 19; TEMP 37.6; O2SAT 97
[2022-10-31 13:16] LABS: Adenovirus Not Detected (NOT DETECT); Chlamydia Pneumoniae Not Detected (NOT DETECT); Coronavirus 229E,HKU1,NL63,OC4 Not Detected (NOT DETECT); Human Metapneumovirus Not Detected (NOT DETECT); Human Rhinovirus/Enterovirus Not Detected (NOT DETECT); Influenza A Not Detected (NOT DETECT); Influenza A H1 Not Detected (NOT DETECT); Influenza A H1-2009 Not Detected (NOT DETECT); Influenza A H3 Not Detected (NOT DETECT); Influenza B Not Detected (NOT DETECT); Mycoplasma Pneumoniae Not Detected (NOT DETECT); Parainfluenza Virus Type 1 Not Detected (NOT DETECT); Parainfluenza Virus Type 2 Not Detected (NOT DETECT); Parainfluenza Virus Type 3 Not Detected (NOT DETECT); Parainfluenza Virus Type 4 Not Detected (NOT DETECT); Respiratory Syncytial Virus A Not Detected (NOT DETECT); Respiratory Syncytial Virus B Not Detected (NOT DETECT); SARS-COV-2 Detected (NOT DETECT)
== END 2022-10-31 13:12 | disposition home or self-care (01) ==
PROVIDERS: Emergency Provider Nurse Practitioner Family
DX: U07.1 COVID-19 (principal); F17.210 Nicotine dependence, cigarettes, uncomplicated
CPT/HCPCS: 36415; 80053; 85025; 87635; 87804; 99283

== ENCOUNTER → 2024-07-07 09:06 | Outpatient (BNVA) | payer SELFPAY | PROVIDERS: PCP Family Medicine; Visit Provider Family Medicine | DX: R63.4 Abnormal weight loss (principal) | CPT/HCPCS: 80053; 80061; 84439; 84443; 85025 ==

== ENCOUNTER 2024-07-24 20:17 | Emergency (ER) | payer SELFPAY ==
[2024-07-24 20:18] VITALS: BP 139/80; PULSE 86; RESP 16; TEMP 36.7; O2SAT 98
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
[2024-07-24] MEDS: HYDROcodone-acetaminophen 7.5-325 mg Tablet 1 TAB PO (21:02)
[2024-07-24 21:35] VITALS: BP 131/72; PULSE 90; RESP 16; O2SAT 94
[2024-07-24] MEDS: neomycin-poly-bacitracin oint 28 gm 1 APPLIC TOPICAL (21:47)
[2024-07-24 21:48] VITALS: BP 143/89; PULSE 81; O2SAT 97
== END 2024-07-24 21:50 | disposition home or self-care (01) ==
PROVIDERS: Emergency Provider Emergency Medicine; PCP Family Medicine
DX: T24.201A Burn of second degree of unspecified site of right lower limb, except ankle and foot, initial encounter (principal); T31.0 Burns involving less than 10% of body surface; X08.8XXA Exposure to other specified smoke, fire and flames, initial encounter; F17.210 Nicotine dependence, cigarettes, uncomplicated
CPT/HCPCS: 99283

== ENCOUNTER → 2025-07-22 16:03 | Outpatient (BNVA) | payer OTHER, SELFPAY | PROVIDERS: PCP Family Medicine; Visit Provider Family Medicine | DX: R63.4 Abnormal weight loss (principal) | CPT/HCPCS: 80053; 85025 ==

== ENCOUNTER → 2025-08-12 10:14 | Outpatient (BNVA) | payer OTHER, SELFPAY | PROVIDERS: PCP Family Medicine; Visit Provider Family Medicine | DX: R63.4 Abnormal weight loss (principal) | CPT/HCPCS: 85025 ==

== ENCOUNTER 2025-09-13 09:57 | Day surgery (SDC) | payer OTHER, SELFPAY ==
[2025-09-13 10:11] VITALS: BMI 28.7
[2025-09-13 10:22] VITALS: BP 153/93; PULSE 76; RESP 18; TEMP 37.1; O2SAT 96
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
[2025-09-13 11:45] VITALS: BP 135/77; PULSE 76; RESP 14; TEMP 36.1; O2SAT 96
[2025-09-13 12:08] VITALS: BP 136/96; PULSE 78; RESP 16; O2SAT 97
--- NOTE | 2025-09-13 12:35 | ANE.PACU2 ---
Inpatient post-anesthesia follow up: Airway intact: Yes Vital signs: Temperature 97.0 F Pulse Rate 78 Respiratory Rate 16 Blood Pressure 136/96 Pulse Oximetry 97 Oxygen Delivery Me thod Room Air Oxygen Flow Rate Fraction of Inspir ed Oxygen Hydration adequate: Yes Nausea and vomiting: No Pain level: 1 Mental status: Baseline
== END 2025-09-13 12:39 | disposition home or self-care (01) ==
PROVIDERS: PCP Family Medicine; Visit Provider Student in an Organized Health Care Education/Training Program
PROC: 0DJ08ZZ Inspection of Upper Intestinal Tract, Via Natural or Artificial Opening Endoscopic (ICD-10-PCS; principal; 2025-09-13 12:30)
PROC: 0DJD8ZZ Inspection of Lower Intestinal Tract, Via Natural or Artificial Opening Endoscopic (ICD-10-PCS; CPT 45378; 2025-09-13 12:30)
DX: K92.1 Melena (principal); K64.8 Other hemorrhoids; R12 Heartburn; K29.70 Gastritis, unspecified, without bleeding; F12.10 Cannabis abuse, uncomplicated; Z87.891 Personal history of nicotine dependence; K21.9 Gastro-esophageal reflux disease without esophagitis
CPT/HCPCS: 43239; 45378; 88305; J2704; J7030